=== PATIENT | female | born 1950 | race Caucasian/White ===

== ENCOUNTER 2024-08-14 19:46 | Emergency (ER) | payer MEDICARE, SELFPAY ==
[2024-08-14 19:47] VITALS: BP 198/97
[2024-08-14 20:01] VITALS: BMI 34.5
[2024-08-14 20:03] VITALS: BP 192/69
--- NOTE | 2024-08-14 20:05 | ED.GENMED ---
History of Present Illness
General
Chief Complaint: Blood Pressure Problem
Source: patient and family (niece)
Exam Limitations: none
Time Seen by Provider: 08/14/24 20:05
Nursing documentation reviewed up to this point in time: agreed with
History of Present Illness
History of Present Illness:
The patient is a 73-year-old female the past medical history of high blood pressure and high cholesterol who presents with complaints of high blood pressure readings at home for the last 2 to 3 days. Patient denies all chest pain and chest
pressure. She denies shortness of breath. She denies recent illness. She reports sometimes she feels sweaty. She reports she was recently evaluated at her clinic supervisor office, 2 weeks ago, and was told everything looks normal. Patient is
followed by Dr. Garcia at [facility] in [facility]. The patient reports that she takes clonidine, labetalol and lisinopril for her blood pressure. She reports she has been on these medicines for a while and takes them
reliably. Patient reports a mild headache on the left side of her head. She denies visual changes, weakness, numbness, nausea and vomiting.
Past History
Past History
ED Past Medical History: CAD, HTN and Hypercholesterolemia
ED Past Surgical History: Cardiac (cardiac stents) and Other
Social History
Tobacco: Non-smoker
Alcohol: Other
Drug: None
Personal: Other
Living: with family
Employment: Other
Family History
Family History: Other
Review of Systems
Review of Systems
Allergies reviewed?: Yes
All Other Systems: ROS reviewed and negative except as documented in HPI and ROS
Constitutional: Reports no symptoms
EENT: Reports no symptoms
Respiratory: Reports no symptoms
Cardiac: Reports no symptoms
ABD/GI: Reports no symptoms
: Reports no symptoms
Musculoskeletal: Reports no symptoms
Skin: Reports no symptoms
Neurological: Reports no symptoms
Endocrine: Reports no symptoms
Hematologic/Lymphatic: Reports no symptoms
Psychiatric: Reports no symptoms
Phy Exam
Physical Exam
Physical Exam:
Physical Exam
General: no apparent distress, not acutely ill. Well appearing
Neck: supple. no meningeal signs. normal psoterior pharynx
Heart: s1/s2 regular rate and rhythm, no murmur. equal radial pulses.
Lungs: no acute respiratory distress. clear bilaterally
Abdomen: normal bowel sounds. not tender. no CVAT
Neuro: alert and oriented. no focal neurological deficits
Skin: no rash
Psychiatric: well kept. interactive and cooperative
Extremities: no edema. no calf tenderness. negative homans. good distal pulses
Course
Orders/Labs/Results
Orders:
Orders
08/14/24 19:51
Electrocardiogram (*1) Urgent
Reason for Study: Hypertension, Benign
EKG- Treatment ONCE
08/14/24 20:04
Complete Blood Count/With Diff Urgent
Comprehensive Metabolic Panel Urgent
Erythrocyte Sed Rate Urgent
Comment: ADD ON
Troponin I Urgent
08/14/24 20:15
EKG [Electrocardiogram (*1)] Urgent
Reason for Study: Hypertension, Benign
EKG- Treatment ONCE
08/14/24 21:26
Add On- LAB Urgent
Tests Added?: esr
08/14/24 21:27
CT Head W/o Iv Contrast Urgent
Comment:
Reason For Exam: headache, high BP
Lisinopril [Zestril] 10 mg PO NOW STA
08/14/24 21:36
Labetalol [Trandate] 200 mg PO NOW STA
08/14/24 22:02
Troponin I Urgent
08/14/24 22:43
Electrocardiogram (*1) Urgent
Reason for Study: Fatigue / Weakness
EKG- Treatment ONCE
08/14/24 23:01
Ketorolac [Toradol] 15 mg IV NOW STA
Abnormal Lab Results
08/14/24
20:04
RBC 4.02 L 10^6/uL
(4.20-5.40)
Hgb 10.7 L g/dL
(12.0-16.0)
Hct 33.9 L %
(37.0-47.0)
MCH 26.6 L pg
(27.0-31.0)
MCHC 31.6 L g/dL
(33.0-37.0)
RDW 16.1 H %
(11.5-14.5)
Absolute Monos (auto) 1.0 H 10^3/uL
(0.1-0.6)
Monocytes % 9.6 H %
(1.7-9.3)
Carbon Dioxide 31 H mmol/L
(22-30)
BUN 24 H mg/dl
(7-17)
Creatinine 1.1 H mg/dL
(0.6-1.0)
08/14/24 20:04
08/14/24 20:04
Vital Signs
Initial and Last Documented VS:
Initial Vital Signs
Temp Pulse Resp BP Pulse Ox
97.9 F 84 18 198/97 98
08/14/24 19:47 08/14/24 19:47 08/14/24 19:47 08/14/24 19:47 08/14/24 19:47
Last Documented Vital Signs
Temp Pulse Resp BP Pulse Ox
97.9 F 61 25 171/60 99
08/14/24 19:47 08/14/24 22:00 08/14/24 22:00 08/14/24 22:00 08/14/24 22:00
MDM/Problems Addressed
Differential Diagnosis Includes:
Hypertensive emergency, hypertensive urgency, uncontrolled hypertension, acute coronary syndrome, STEMI
MDM/Problems Addressed:
Patient presents with concerns related to acute rise of her blood pressure
Chronic conditions affecting care: HTN
Acute Exacerbation and/or Progression of Chronic Illness:
Patient shows poorly controlled hypertension
*Radiology
Radiology exam reviewed: radiology read reviewed
*Pulse Oximetry
Patient hypoxic: no
*EKG
Interpreted by ED Provider?: Yes
Interpretation: abnormal
Comparison EKG: no comparison EKG present
Rate: normal
Rhythm: sinus
[place]: left axis deviation
Interval: normal interval
QRS Pattern: left vent hypertrophy
Ischemia: non-specific ST changes (J-point elevation. Second EKG looks unchanged as compared to first. Shows a normal sinus rhythm with left axis deviation, LVH, and ST changes that appear to look like J-point elevation)
*Mule Developer Interpretation
Rate: normal
Interpretation: normal
Rhythm: sinus
*Critical Care Note
Total Time (30-74mins, 75-104mins- exclusive of procedures): 32 minutes
comment:
32 minutes critical care given to the patient including reviewing her EKGs, blood work, reassessing her for any other concerns, calling [facility] clinic supervisor on-call, and counseling the patient and family.
Data Reviewed
Source: patient and family (Patient's niece who is at the bedside)
Patient Management
Social determinants of health affecting care: Living situation and Strong social support
Discussion with other providers: Other (Case discussed with Dr. Sunny Mars who reviewed patient's EKG and agreed that he did not feel the EKGs look like a STEMI, as they look more like J-point elevation)
Update Note
Update Note:
Patient remains chest pain-free for hours in the emergency department. She has had no current chest pain or any recent chest pain. Her 3rd EKG looks similar to the first 2 EKGs done. The third EKG shows a left axis deviation, normal sinus rhythm,
LVH with left bundle branch block.
Patient has a normal neurological exam and there is no sign of stroke. There is no sign of heart failure. Her blood pressure is improved with oral medication. Patient given Toradol for her headache. Patient encouraged to call cardiology tomorrow
to show cardiology her EKGs and go over her blood pressure medication. Patient has no temporal tenderness and ESR is normal, therefore, temporal arteritis is very unlikely.
ED Attending Note
-
Portions of this chart may have been created with voice recognition software.� Occasional wrong word or��sound alike� substitutions may have occurred due to the inherent limitations of voice recognition software.
Discharge Plan
Departure
Patient Disposition: Home (Routine Discharge)
Date of Disposition: 08/14/24
Time of Disposition: 23:05
Patient with high blood pressure during this ER visit?: Yes
Condition: Good
Covid-19: Not Applicable
Discharge Problem:
High blood pressure
Instructions: High Blood Pressure (DC), BLOOD PRESSURE
Referrals:
Meghan Harris MD [Family Provider] -
Activity Restrictions/Additional Instructions:
Please call your clinic supervisor tomorrow morning and arrange follow-up within [address] your blood pressure can be rechecked and you could go over dosages of your blood pressure medications to see if your clinic supervisor wants to change anything.
Please also show your clinic supervisor the EKGs that we did here in our emergency department.
Interventions
Interventions:
*Risk Screen - Suicide Last Done: 08/14/24 19:50
*General Assessment Last Done: 08/14/24 19:50
*Neglect/Abuse Screening Last Done: 08/14/24 19:50
*ED- Fall Risk Assessment Last Done: 08/14/24 20:02
*ED COVID-19 Vaccine History Last Done: 08/14/24 19:50
ED- Cardiac Assessment Last Done: 08/14/24 20:05
ED- Neurological Assessment Last Done: 08/14/24 20:05
ED- Pulmonary Assessment Last Done: 08/14/24 20:05
Discharge Date and Time
Print Language: [id number]
[2024-08-14 20:25] LABS: % Basophils 0.5 % (0-2); % Eosinophils 2.4 % (0-6); % Immature Granulocytes 0.3 % (0-0.5); % Lymphocytes 23.8 % (20.5-51.1); % Monocytes 9.6 % (1.7-9.3); % Neutrophils 63.4 % (42.2-75.2); Absolute Basophils 0.1 10^3/uL (0-0.2); Absolute Eosinophils 0.2 10^3/uL (0-0.7); Absolute Lymphocytes 2.4 10^3/uL (1.2-3.4); Absolute Neutrophils 6.3 10^3/uL (1.4-6.5); Hematocrit 33.9 % (37.0-47.0); Hemoglobin 10.7 g/dL (12.0-16.0); Mean Corp Hgb Conc. 31.6 g/dL (33.0-37.0); Mean Corpuscular Hgb 26.6 pg (27.0-31.0); Mean Corpuscular Volume 84.3 fL (81.0-99.0); Mean Platelet Volume 10.1 fL (7.4-10.4); Nucleated Red Blood Cells % 0 %; Platelet Count 243 10^3/uL (130-400); Red Blood Cell Count 4.02 10^6/uL (4.20-5.40); Red Cell Dist. Width 16.1 % (11.5-14.5); White Blood Cell Count 9.9 10^3/uL (4.8-10.8)
[2024-08-14 20:28] LABS: ALT (SGPT) 26 U/L (0-35); AST (SGOT) 23 U/L (14-36); Albumin 4.2 g/dl (3.5-5.0); Alkaline Phosphatase 78 U/L (38-126); Blood Urea Nitrogen 24 mg/dl (7-17); Calcium 9.6 mg/dl (8.4-10.2); Carbon Dioxide 31 mmol/L (22-30); Chloride 103 mmol/L (98-107); Estimated Creatinine Clearance 43 ml/min; Glucose 93 mg/dl (70-99); Potassium 4.1 mmol/L (3.5-5.1); Sodium 141 mmol/L (135-145); Total Bilirubin 0.6 mg/dl (0.2-1.3); Total Protein 6.6 g/dl (6.3-8.2); eGFR 53.39
[2024-08-14 20:41] LABS: Troponin I < 0.012 ng/ml
[2024-08-14 21:00] VITALS: BP 190/58
[2024-08-14] MEDS: ZESTRIL 10 MG PO (21:38)
[2024-08-14] MEDS: TRANDATE 200 MG PO (21:42)
[2024-08-14 21:48] LABS: Erythrocyte Sed Rate 18 mm/hour (0-20)
[2024-08-14 22:00] VITALS: BP 171/60
[2024-08-14 22:30] LABS: Troponin I 0.012 ng/ml
[2024-08-14 23:00] VITALS: BP 153/51
[2024-08-14] MEDS: TORADOL 15 MG IV (23:04)
== END 2024-08-14 23:29 | disposition home or self-care (01) ==
LOC: EMR 19:46
PROVIDERS: EMERGENCY PHYSICIAN Emergency Medicine; FAMILY PHYSICIAN Family Medicine
DX: I10 Essential (primary) hypertension (principal); R51.9 Headache, unspecified; I25.10 Atherosclerotic heart disease of native coronary artery without angina pectoris; E78.00 Pure hypercholesterolemia, unspecified; Z95.5 Presence of coronary angioplasty implant and graft
CPT/HCPCS: 99284; 96374; 70450; 80053; 84484; 85025; 85652; 93005